=== PATIENT | male | born 1960 | race African-American/Black ===

== ENCOUNTER 2018-06-30 09:02 | Emergency (ER) | payer MEDICARE ==
[~2018-06-30] VITALS: Ht 162.6 cm; Wt 70.8 kg
[2018-06-30] MEDS ORDERED: ASPIRIN 81 MG CHEW TAB PO ONE (09:30)
--- NOTE | 2018-06-30 10:30 | Diagnostic Imaging Report ---
History:Unsteady gait and blurry vision Comparison studies:None Technique: Axial images were obtained from the skull base to the vertex. Coronal and sagittal images reconstructed from the axial data. Intravenous contrast: None Dose modulation, iterative reconstruction, and/or weight based adjustment of the mA/kV was utilized to reduce the radiation dose to as low as reasonably achievable. Findings: Scalp/skull: No abnormalities. Extra-axial spaces: No masses. No fluid collections. Brain sulci: Age-appropriate. Ventricles: Age-appropriate. No hydrocephalus. Parenchyma: No abnormal densities. No masses, hemorrhage, acute or chronic cortical vascular insults. Sellar/suprasellar region: No abnormalities. Craniocervical junction: Patent foramen magnum. No Chiari one malformation. Incidental findings: Atherosclerotic calcifications in the carotid siphons . 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 Impression: No acute abnormalities. Signed by: DR Sung Dawkins M.D. on 06/30/2018 10:27 AM
[2018-06-30 10:42] LABS: BASOPHILS % 0.5 % (0.0-1.0); EOSINOPHILS # (AUTO) 0.2 (0.0-0.4); EOSINOPHILS % 3.8 % (0.0-6.0); HEMATOCRIT 42.9 % (38.2-49.6); HEMOGLOBIN 14.7 g/dL (14.0-18.0); LYMPHOCYTES # (AUTO) 1.3 (1.0-3.2); LYMPHOCYTES % 28.8 % (18.0-39.1); MEAN CORPUSCULAR HEMOGLOBIN 30.6 pg (28-32); MEAN CORPUSCULAR HGB CONC 34.3 g/dL (31-35); MEAN CORPUSCULAR VOLUME 89.2 fL (81-99); MONOCYTES # (AUTO) 0.4 (0.2-0.8); MONOCYTES % 9.9 % (4.4-11.3); NEUTROPHILS # (AUTO) 2.5 (2.1-6.9); NEUTROPHILS % 56.8 % (38.7-80.0); PLATELET COUNT 149 x10e3/uL (140-360); RED BLOOD COUNT 4.81 x10e6/uL (4.3-5.7); RED CELL DISTRIBUTION WIDTH 12.7 % (11.7-14.4)
[2018-06-30 10:44] LABS: AMPHETAMINES SCREEN,URINE NEGATIVE (NEGATIVE); BENZODIAZEPINES SCREEN,URINE POSITIVE (NEGATIVE); PHENCYCLIDINE SCREEN,URINE NEGATIVE (NEGATIVE)
[2018-06-30 10:48] LABS: CLARITY,URINE CLEAR (CLEAR); COLOR,URINE YELLOW (YELLOW); INR 0.87; PROTHROMBIN TIME 12.6 seconds (11.9-14.5)
[2018-06-30 10:49] LABS: BILIRUBIN,URINE NEGATIVE (NEGATIVE); KETONES,URINE NEGATIVE (NEGATIVE); LEUKOCYTE ESTERASE ,URINE NEGATIVE (NEGATIVE); NITRITE,URINE NEGATIVE (NEGATIVE); PARTIAL THROMBOPLASTIN TIME 28.4 seconds (23.8-35.5); PROTEIN,URINE DIPSTICK NEGATIVE (NEGATIVE); URINE UROBILINOGEN 0.2 mg/dL (0.2 - 1)
[2018-06-30 10:52] LABS: EPITHELIAL CELLS,URINE RARE /LPF
[2018-06-30 10:59] LABS: ALANINE AMINOTRANSFERASE 111 IU/L (0-55); ALBUMIN 3.4 g/dL (3.5-5.0); ALBUMIN/GLOBULIN RATIO 0.9 (0.8-2.0); ALKALINE PHOSPHATASE 68 IU/L (40-150); ANION GAP 12.9 mmol/L (8-16); BLOOD UREA NITROGEN 12 mg/dL (7-26); BUN/CREATININE RATIO 9 (6-25); CALCIUM 9.5 mg/dL (8.4-10.2); CARBON DIOXIDE 25 mmol/L (22-29); CHLORIDE 102 mmol/L (98-107); CREATINE KINASE 85 IU/L (30-200); CREATININE, SERUM 1.35 mg/dL (0.72-1.25); EST GLOMERULAR FILTRATION RATE > 60 ML/MIN (60-); GLUCOSE 88 mg/dL (74-118); POTASSIUM 3.9 mmol/L (3.5-5.1); SODIUM 136 mmol/L (136-145)
[2018-06-30 11:11] LABS: MAGNESIUM 1.8 MG/DL (1.3-2.1); PHOSPHORUS 2.4 MG/DL (2.3-4.7)
[2018-06-30] MEDS ORDERED: CYANOCOBALAMIN INJ 1,000 MCG/ML VIAL IM ONE (11:15)
[2018-06-30] MEDS ORDERED: THIAMINE HCL INJ 100 MG/ML 2ML VIAL IV ONE (11:15)
--- NOTE | 2018-06-30 14:16 | Diagnostic Imaging Report ---
History:Unsteady gait, blurred vision Comparison studies: None Technique: Axial images were obtained through the maxillofacial region. Coronal and sagittal images reconstructed from the axial data. Intravenous contrast: None Dose modulation, iterative reconstruction, and/or weight based adjustment of the mA/kV was utilized to reduce the radiation dose to as low as reasonably achievable. Findings: Soft tissues: No abnormalities. Bones: No acute fractures or bone abnormalities. 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 Chronic fracture deformities of the right maxillary sinus and right zygomatic bone with associated anterior plate and screws. Metallic mesh is seen at the right orbital floor Orbits: Globes: No acute abnormality. Chronic right orbital floor fracture with adequate alignment and metallic mesh in place. No herniated orbital contents. Extra or intraconal abnormalities: None. Paranasal sinuses: Nonspecific mucosal thickening of the right maxillary, bilateral ethmoid and frontal sinuses sinus. Partially visualized degenerative changes of the cervical spine with anterior projecting osteophytes from C3 through C7. Periapical lucency at dentition #4 and 20. IMPRESSION: 1. No acute facial abnormalities. 2. Multiple chronic facial fractures as described above. Signed by: DR Sung Dawkins M.D. on 06/30/2018 2:13 PM
== END 2018-06-30 16:01 ==
LOC: ER 09:02
DX: G31.2 Degeneration of nervous system due to alcohol (principal); K70.10 Alcoholic hepatitis without ascites; N18.9 Chronic kidney disease, unspecified; I10 Essential (primary) hypertension; F17.210 Nicotine dependence, cigarettes, uncomplicated
CPT/HCPCS: 36415; 70450; 70487; 80053; 80307; 81001; 82140; 82550; 82553; 82607; 83735; 84100; 84425; 84484; 85025; 85610; 85730; 99284; J3411; J3420